=== PATIENT | female | born 1970 | race Caucasian/White ===

== ENCOUNTER → 2016-10-07 | Outpatient (REF) | payer BC ==
[2016-10-07 17:57] LABS: MEAN CORPUSCULAR HEMOGLOBIN 27.1 pg (27.0-33.0); MEAN CORPUSCULAR VOLUME 84.7 fl (80.0-96.0); RED CELL DISTRIBUTION WIDTH 14.8 % (11.5-14.5); WHITE BLOOD COUNT 8.6 K/mm3 (4.0-10.0)
[2016-10-07 18:58] LABS: ALBUMIN/GLOBULIN RATIO 1.38 (1.00-1.93); ALKALINE PHOSPHATASE 68 U/L (45-117); ALT/SGPT 22 U/L (12-78); ANION GAP 5 MEQ/L (8-16); AST/SGOT 14 U/L (15-37); BILIRUBIN,DIRECT < 0.1 MG/DL (0.0-0.2); BILIRUBIN,TOTAL 0.4 MG/DL (0.2-1.0); BLOOD UREA NITROGEN 13 MG/DL (7-18); CARBON DIOXIDE LEVEL 28 MEQ/L (21-32); CHLORIDE LEVEL 108 MEQ/L (98-107); CREATININE FOR GFR 0.61 MG/DL (0.55-1.02); GLOMERULAR FILTRATION RATE > 60.0 (>58); GLUCOSE, FASTING 83 MG/DL (70-105); POTASSIUM SERUM 4.7 MEQ/L (3.5-5.1); SODIUM LEVEL 141 MEQ/L (136-145); TOTAL PROTEIN 6.9 GM/DL (6.4-8.2)
== END ==
LOC: M SFHCPLAZ 15:19
PROVIDERS: ATTEND Dermatology
DX: L40.0 Psoriasis vulgaris (principal)

== ENCOUNTER → 2017-02-19 | Outpatient (REF) | payer BC ==
[2017-02-20 11:58] LABS: BASO # 0.1 10^3/uL (0.0-0.2); BASO % 0.7 % (0.0-1.0); EOS # 0.4 10^3/uL (0.0-0.50); EOS % 4.2 % (0.0-3.0); IMMATURE GRANULOCYTE % 0.5 % (0-0); LYMPH # 2.7 10^3/uL (1.5-4.5); LYMPH % 31.7 % (24.0-44.0); MEAN CORPUSCULAR HEMOGLOBIN 26.2 pg (27.0-33.0); MEAN CORPUSCULAR VOLUME 81.8 fl (80.0-96.0); MONO # 0.7 10^3/uL (0.0-0.8); MONO % 7.6 % (0.0-5.0); NEUTROPHILS # 4.8 10^3/uL (1.8-7.7); NEUTROPHILS % 55.3 % (36.0-66.0); PLATELET COUNT, AUTOMATED 369 10^3/uL (150-450); RED CELL DISTRIBUTION WIDTH 15.3 % (11.5-14.5); WHITE BLOOD COUNT 8.6 10^3/uL (4.0-10.0)
[2017-02-20 12:33] LABS: ALBUMIN/GLOBULIN RATIO 1.29 (1.00-1.93); ALKALINE PHOSPHATASE 77 U/L (45-117); ALT/SGPT 21 U/L (12-78); ANION GAP 5 MEQ/L (8-16); AST/SGOT 19 U/L (7-37); BILIRUBIN,TOTAL 0.3 MG/DL (0.2-1.0); BLOOD UREA NITROGEN 12 MG/DL (7-18); CALCIUM LEVEL 9.3 MG/DL (8.5-10.1); CARBON DIOXIDE LEVEL 30 MEQ/L (21-32); CHLORIDE LEVEL 106 MEQ/L (98-107); CREATININE FOR GFR 0.64 MG/DL (0.55-1.02); GLOMERULAR FILTRATION RATE > 60.0 (>58); GLUCOSE, FASTING 79 MG/DL (70-105); POTASSIUM SERUM 4.4 MEQ/L (3.5-5.1); SODIUM LEVEL 141 MEQ/L (136-145); TOTAL PROTEIN 7.1 GM/DL (6.4-8.2)
== END ==
LOC: M SFHCLERA 16:50
PROVIDERS: ATTEND Dermatology
DX: L40.0 Psoriasis vulgaris (principal)

== ENCOUNTER → 2017-03-10 | Outpatient (REF) | payer BC ==
[2017-03-10 21:24] LABS: ANION GAP 6 MEQ/L (8-16); BLOOD UREA NITROGEN 14 MG/DL (7-18); CALCIUM LEVEL 9.5 MG/DL (8.5-10.1); CARBON DIOXIDE LEVEL 29 MEQ/L (21-32); CHLORIDE LEVEL 104 MEQ/L (98-107); CREATININE FOR GFR 0.66 MG/DL (0.55-1.02); GLOMERULAR FILTRATION RATE > 60.0 (>58); GLUCOSE, FASTING 84 MG/DL (70-105); POTASSIUM SERUM 5.1 MEQ/L (3.5-5.1); SODIUM LEVEL 139 MEQ/L (136-145)
== END ==
LOC: M SFHCLERA 19:03
PROVIDERS: ATTEND Dermatology
DX: L40.9 Psoriasis, unspecified (principal)

== ENCOUNTER 2017-04-09 12:54 | Emergency (ER) | payer BC ==
[2017-04-09] MEDS: NS 1,000 ML IV (14:00)
[2017-04-09 14:32] LABS: BASO % 0.1 % (0.0-1.0); EOS % 0.3 % (0.0-3.0); IMMATURE GRANULOCYTE % 0.4 % (0-0); LYMPH # 0.8 10^3/uL (1.5-4.5); LYMPH % 7.7 % (24.0-44.0); MEAN CORPUSCULAR HGB CONC 32.9 g/dl (32.0-36.5); MEAN CORPUSCULAR VOLUME 78.8 fl (80.0-96.0); MONO % 9.6 % (0.0-5.0); NEUTROPHILS # 8.1 10^3/uL (1.8-7.7); NEUTROPHILS % 81.9 % (36.0-66.0); PLATELET COUNT, AUTOMATED 259 10^3/uL (150-450); RED CELL DISTRIBUTION WIDTH 14.9 % (11.5-14.5); WHITE BLOOD COUNT 9.9 10^3/uL (4.0-10.0)
[2017-04-09] MEDS: ONDANSETRON 4MG/2ML VIAL (J2405) IV (14:34)
[2017-04-09] MEDS: KETOROLAC 30 MG/ML VIAL (J1885) IV (14:34)
[2017-04-09] MEDS: MORPHINE 2 MG/ML 1ML SYRINGE IV (14:41)
[2017-04-09 14:42] LABS: INR 1.23
[2017-04-09 14:54] LABS: ALBUMIN 3.7 GM/DL (3.2-5.2); ALBUMIN/GLOBULIN RATIO 1.03 (1.00-1.93); ALKALINE PHOSPHATASE 85 U/L (45-117); ALT/SGPT 12 U/L (12-78); ANION GAP 6 MEQ/L (8-16); AST/SGOT 14 U/L (7-37); BILIRUBIN,DIRECT 0.2 MG/DL (0.0-0.2); BILIRUBIN,TOTAL 0.5 MG/DL (0.2-1.0); BLOOD UREA NITROGEN 17 MG/DL (7-18); CALCIUM LEVEL 8.7 MG/DL (8.5-10.1); CARBON DIOXIDE LEVEL 29 MEQ/L (21-32); CHLORIDE LEVEL 104 MEQ/L (98-107); GLOMERULAR FILTRATION RATE > 60.0 (>58); GLUCOSE, FASTING 91 MG/DL (70-105); POTASSIUM SERUM 3.8 MEQ/L (3.5-5.1); SODIUM LEVEL 139 MEQ/L (136-145); TOTAL PROTEIN 7.3 GM/DL (6.4-8.2)
[2017-04-09 15:28] LABS: KETONE, URINE AUTO RFX 2+ mg/dL (NEGATIVE); MUCUS, URINE RFX LARGE (NEGATIVE); RBC, URINE AUTO RFX 7 /HPF (0-3); SPECIFIC GRAVITY UR AUTO RFX 1.018 (1.002-1.035); SQUAM EPITHELIAL CELL UR AURFX 0 /HPF (0-6)
[2017-04-09 15:29] LABS: LEUKOCYTE ESTERASE UR AUTO RFX 3+ (NEGATIVE); NITRITE, URINE AUTO RFX POSITIVE (NEGATIVE); WBC, URINE AUTO RFX TNTC /HPF (0-3)
[2017-04-09] MEDS: CIPROFLOXACIN 400 MG in APPROPRIATE DILUENT 1 EA IV (16:28)
== END 2017-04-09 17:45 | disposition home or self-care (01) ==
LOC: M ED 12:54
DX: N10 Acute pyelonephritis (principal); F17.200 Nicotine dependence, unspecified, uncomplicated
CPT/HCPCS: J2405

== ENCOUNTER → 2017-06-16 | Outpatient (REF) | payer BC ==
[2017-06-16 21:21] LABS: BASO # 0.1 10^3/uL (0.0-0.2); BASO % 0.6 % (0.0-1.0); EOS # 0.4 10^3/uL (0.0-0.50); EOS % 4.7 % (0.0-3.0); HEMATOCRIT 42.6 % (36.0-47.0); HEMOGLOBIN 13.6 g/dl (12.0-16.0); IMMATURE GRANULOCYTE % 0.3 % (0-3.0); LYMPH # 2.9 10^3/uL (1.5-4.5); LYMPH % 36.2 % (24.0-44.0); MEAN CORPUSCULAR HGB CONC 31.9 g/dl (32.0-36.5); MEAN CORPUSCULAR VOLUME 81.5 fl (80.0-96.0); MONO # 0.6 10^3/uL (0.0-0.8); MONO % 7.6 % (0.0-5.0); NEUTROPHILS % 50.6 % (36.0-66.0); PLATELET COUNT, AUTOMATED 313 10^3/uL (150-450); RED BLOOD COUNT 5.23 10^6/uL (4.00-5.40); RED CELL DISTRIBUTION WIDTH 15.6 % (11.5-14.5); WHITE BLOOD COUNT 7.9 10^3/uL (4.0-10.0)
[2017-06-16 21:51] LABS: ALBUMIN 4.3 GM/DL (3.2-5.2); ALBUMIN/GLOBULIN RATIO 1.43 (1.00-1.93); ALKALINE PHOSPHATASE 78 U/L (45-117); ALT/SGPT 19 U/L (12-78); ANION GAP 5 MEQ/L (8-16); AST/SGOT 15 U/L (7-37); BILIRUBIN,TOTAL 0.3 MG/DL (0.2-1.0); BLOOD UREA NITROGEN 13 MG/DL (7-18); CALCIUM LEVEL 8.9 MG/DL (8.5-10.1); CARBON DIOXIDE LEVEL 29 MEQ/L (21-32); CHLORIDE LEVEL 108 MEQ/L (98-107); CREATININE FOR GFR 0.67 MG/DL (0.55-1.30); GLOMERULAR FILTRATION RATE > 60.0 (>58); GLUCOSE, FASTING 83 MG/DL (70-100); POTASSIUM SERUM 4.3 MEQ/L (3.5-5.1); SODIUM LEVEL 142 MEQ/L (136-145); TOTAL PROTEIN 7.3 GM/DL (6.4-8.2)
[2017-06-18 11:02] LABS: HEPATITIS B SURFACE ANTIGEN NEGATIVE (NEGATIVE)
[2017-06-18 11:26] LABS: HEPATITIS B CORE ANTIBODY IGM NEGATIVE (NEGATIVE)
[2017-06-18 11:28] LABS: HEPATITIS A ANTIBODY IGM NEGATIVE (NEGATIVE)
[2017-06-18 11:29] LABS: HIV 1&2 SCREEN CENTAUR NEGATIVE (NEGATIVE)
[2017-06-18 13:12] LABS: HEPATITIS C VIRUS ABY INDEX 0.1 INDEX (<0.8)
[2017-06-19 00:10] LABS: QUANTIFERON GOLD TB Positive (Negative); TB Test (QFT) Antigen 1.03 IU/mL (.); TB Test (QFT) Antigen Minus Ni 0.97 IU/mL (.); TB Test (QFT) Mitogen 6.71 IU/mL (.); TB Test (QFT) Nil 0.06 IU/mL (.)
== END ==
LOC: M SFHCLERA 16:47
DX: L40.0 Psoriasis vulgaris (principal)
CPT/HCPCS: 80053

== ENCOUNTER → 2017-10-27 | Outpatient (REF) | payer BC ==
[2017-10-27 19:50] LABS: BASO # 0.1 10^3/uL (0.0-0.2); BASO % 0.7 % (0.0-1.0); EOS # 0.4 10^3/uL (0.0-0.50); EOS % 4.4 % (0.0-3.0); HEMATOCRIT 40.6 % (36.0-47.0); HEMOGLOBIN 13.1 g/dl (12.0-15.5); IMMATURE GRANULOCYTE % 0.2 % (0-3.0); LYMPH # 3.9 10^3/uL (1.5-4.5); LYMPH % 43.2 % (24.0-44.0); MEAN CORPUSCULAR HEMOGLOBIN 26.5 pg (27.0-33.0); MEAN CORPUSCULAR HGB CONC 32.3 g/dl (32.0-36.5); MONO # 0.7 10^3/uL (0.0-0.8); MONO % 8.2 % (0.0-5.0); NEUTROPHILS # 3.9 10^3/uL (1.8-7.7); NEUTROPHILS % 43.3 % (36.0-66.0); PLATELET COUNT, AUTOMATED 297 10^3/uL (150-450); RED BLOOD COUNT 4.95 10^6/uL (4.00-5.40); RED CELL DISTRIBUTION WIDTH 15.7 % (11.5-14.5); WHITE BLOOD COUNT 8.9 10^3/uL (4.0-10.0)
[2017-10-27 19:59] LABS: ALBUMIN/GLOBULIN RATIO 1.29 (1.00-1.93); ALKALINE PHOSPHATASE 76 U/L (45-117); ALT/SGPT 21 U/L (12-78); ANION GAP 5 MEQ/L (8-16); AST/SGOT 15 U/L (7-37); BILIRUBIN,TOTAL 0.4 MG/DL (0.2-1.0); BLOOD UREA NITROGEN 15 MG/DL (7-18); CALCIUM LEVEL 9.5 MG/DL (8.5-10.1); CARBON DIOXIDE LEVEL 29 MEQ/L (21-32); CHLORIDE LEVEL 110 MEQ/L (98-107); CREATININE FOR GFR 0.67 MG/DL (0.55-1.30); GLOMERULAR FILTRATION RATE > 60.0 (>58); GLUCOSE, FASTING 86 MG/DL (70-100); SODIUM LEVEL 144 MEQ/L (136-145); TOTAL PROTEIN 7.1 GM/DL (6.4-8.2)
[2017-10-27 20:01] LABS: POTASSIUM SERUM 5.2 MEQ/L (3.5-5.1)
== END ==
LOC: M SFHCLERA 16:52
DX: L40.0 Psoriasis vulgaris (principal)

== ENCOUNTER → 2017-11-13 | Outpatient (REF) | payer BC ==
[2017-11-13 21:41] LABS: APPEARANCE, URINE HAZY (CLEAR); BACTERIA, URINE AUTO NEGATIVE (NEGATIVE); BILIRUBIN, URINE AUTO 1+ (NEGATIVE); BLOOD, URINE BLOOD NEGATIVE (NEGATIVE); COLOR, URINE YELLOW (YELLOW); GLUCOSE, URINE (UA) AUTO NEGATIVE (NEGATIVE); KETONE, URINE AUTO TRACE mg/dL (NEGATIVE); LEUKOCYTE ESTERASE, URINE AUTO NEGATIVE (NEGATIVE); MUCUS, URINE MODERATE (NEGATIVE); NITRITE, URINE AUTO NEGATIVE (NEGATIVE); PROTEIN, URINE AUTO 1+ mg/dL (NEGATIVE); RBC, URINE AUTO 9 /HPF (0-3); SPECIFIC GRAVITY URINE AUTO 1.029 (1.002-1.035); SQUAMOUS EPITHELIAL CELL UR AU 2 /HPF (0-6); WBC, URINE AUTO 2 /HPF (0-3)
== END ==
LOC: M LAB REF 21:10
DX: N39.0 Urinary tract infection, site not specified (principal)
CPT/HCPCS: 81001

== ENCOUNTER → 2020-01-26 | Outpatient (CLI) | payer BC ==
[~2020-01-26] MED LIST: CIPR-249 PO; CYCL1CAP5 PO; HYDR-3715 PO
== END ==
LOC: M LAB 10:52
PROVIDERS: ATTEND Dermatology
DX: Z79.899 Other long term (current) drug therapy (principal)

== ENCOUNTER → 2020-02-17 | Outpatient (CLI) | payer BC ==
--- NOTE | 2020-02-17 14:15 | REPPI ---
INDICATION: R76.12 POSITIVE QUANTIFERON-TB GOLD TEST COMPARISON: None. TECHNIQUE: PA/Lateral FINDINGS: Lungs: Clear, no infiltrate. Heart: Normal in size. Mediastinum: Mediastinal silhouette unremarkable. There is mild calcification of the thoracic aorta. Pleural angles: Unremarkable.. Bones and soft tissues: Unremarkable. IMPRESSION: No acute pulmonary disease. <Electronically signed by Peter Vital > 02/17/20 [id number]
== END ==
LOC: M PLAIMG 13:52
PROVIDERS: ATTEND Internal Medicine Infectious Disease
DX: R76.12 Nonspecific reaction to cell mediated immunity measurement of gamma interferon antigen response without active tuberculosis (principal)

== ENCOUNTER → 2020-02-17 | Outpatient (REF) | payer BC ==
[2020-02-17 15:57] LABS: BASO # 0.1 10^3/uL (0.0-0.2); BASO % 0.7 % (0.0-1.0); EOS # 0.6 10^3/uL (0.0-0.5); EOS % 6.6 % (0.0-3.0); HEMATOCRIT 41.9 % (36.0-47.0); HEMOGLOBIN 13.3 g/dl (12.0-15.5); LYMPH # 3.3 10^3/uL (1.5-5.0); LYMPH % 40.1 % (24.0-44.0); MEAN CORPUSCULAR HEMOGLOBIN 26.2 pg (27.0-33.0); MEAN CORPUSCULAR HGB CONC 31.7 g/dl (32.0-36.5); MEAN CORPUSCULAR VOLUME 82.6 fl (80.0-96.0); MONO # 0.6 10^3/uL (0.0-0.8); NEUTROPHILS # 3.8 10^3/uL (1.5-8.5); NEUTROPHILS % 45.4 % (36.0-66.0); PLATELET COUNT, AUTOMATED 320 10^3/uL (150-450); RED BLOOD COUNT 5.07 10^6/uL (4.00-5.40); WHITE BLOOD COUNT 8.3 10^3/uL (4.0-10.0)
[2020-02-17 16:26] LABS: ALBUMIN 4.1 GM/DL (3.2-5.2); ALT/SGPT 19 U/L (12-78); BILIRUBIN,TOTAL 0.4 MG/DL (0.2-1.0); BLOOD UREA NITROGEN 15 MG/DL (7-18); CALCIUM LEVEL 9.7 MG/DL (8.5-10.1); CARBON DIOXIDE LEVEL 27 MEQ/L (21-32); CHLORIDE LEVEL 107 MEQ/L (98-107); CREATININE FOR GFR 0.68 MG/DL (0.55-1.30); GLOMERULAR FILTRATION RATE > 60.0 (>58); GLUCOSE, FASTING 86 MG/DL (70-100); POTASSIUM SERUM 4.7 MEQ/L (3.5-5.1); SODIUM LEVEL 139 MEQ/L (136-145); TOTAL PROTEIN 7.4 GM/DL (6.4-8.2)
== END ==
LOC: M SFHCPLAZ 13:52
PROVIDERS: ATTEND Internal Medicine Infectious Disease
DX: R76.12 Nonspecific reaction to cell mediated immunity measurement of gamma interferon antigen response without active tuberculosis (principal)

== ENCOUNTER → 2020-03-16 | Outpatient (REF) | payer BC ==
[2020-03-16 17:56] LABS: BASO # 0.1 10^3/uL (0.0-0.2); BASO % 0.9 % (0.0-1.0); EOS # 0.6 10^3/uL (0.0-0.5); EOS % 9.5 % (0.0-3.0); HEMATOCRIT 42.4 % (36.0-47.0); HEMOGLOBIN 13.1 g/dl (12.0-15.5); LYMPH # 2.2 10^3/uL (1.5-5.0); LYMPH % 34.2 % (24.0-44.0); MEAN CORPUSCULAR HEMOGLOBIN 25.7 pg (27.0-33.0); MEAN CORPUSCULAR HGB CONC 30.9 g/dl (32.0-36.5); MEAN CORPUSCULAR VOLUME 83.1 fl (80.0-96.0); MONO # 0.6 10^3/uL (0.0-0.8); MONO % 9.1 % (0.0-5.0); NEUTROPHILS % 45.8 % (36.0-66.0); PLATELET COUNT, AUTOMATED 296 10^3/uL (150-450); WHITE BLOOD COUNT 6.5 10^3/uL (4.0-10.0)
[2020-03-16 19:27] LABS: ALBUMIN 3.9 GM/DL (3.2-5.2); ALT/SGPT 34 U/L (12-78); BILIRUBIN,DIRECT < 0.1 MG/DL (0.0-0.2); BILIRUBIN,TOTAL 0.2 MG/DL (0.2-1.0)
== END ==
LOC: M SFHCPLAZ 14:29
PROVIDERS: ATTEND Internal Medicine Infectious Disease
DX: R76.12 Nonspecific reaction to cell mediated immunity measurement of gamma interferon antigen response without active tuberculosis (principal)

== ENCOUNTER → 2020-04-23 | Outpatient (CLI) | payer SELFPAY | LOC: M LABSMTC 11:11 | PROVIDERS: ATTEND Pediatrics | DX: Z20.822 Contact with and (suspected) exposure to COVID-19 (principal) ==

== ENCOUNTER → 2022-09-27 | Outpatient (CLI) | payer BC | LOC: M WUC 12:54 | PROVIDERS: ATTEND Nurse Practitioner Family | DX: M50.323 Other cervical disc degeneration at C6-C7 level (principal) ==

== ENCOUNTER → 2022-11-06 | Outpatient (CLI) | payer OTHER ==
[2022-11-06 11:31] LABS: HEMATOCRIT 36.4 % (36.0-47.0); HEMOGLOBIN 11.1 g/dl (12.0-15.5); MEAN CORPUSCULAR HEMOGLOBIN 24.1 pg (27.0-33.0); MEAN CORPUSCULAR HGB CONC 30.5 g/dl (32.0-36.5); PLATELET COUNT, AUTOMATED 492 10^3/uL (150-450); RED BLOOD COUNT 4.61 10^6/uL (4.00-5.40); WHITE BLOOD COUNT 7.7 10^3/uL (4.0-10.0)
[2022-11-06 11:54] LABS: HEMOGLOBIN A1c 5.7 % (4.0-6.0)
[2022-11-06 12:04] LABS: ALBUMIN 3.4 G/DL (3.2-5.2); ALKALINE PHOSPHATASE 127 U/L (46-116); ALT/SGPT 19 U/L (7.0-40); AST/SGOT 17 U/L (<34); BILIRUBIN,TOTAL 0.2 MG/DL (0.3-1.2); BLOOD UREA NITROGEN 10 MG/DL (9-23); CALCIUM LEVEL 9.2 MG/DL (8.5-10.1); CARBON DIOXIDE LEVEL 25 MMOL/L (20-31); CHLORIDE LEVEL 107 MMOL/L (98-107); CHOLESTEROL LEVEL 195 MG/DL (<200); CHOLESTEROL RISK RATIO 4.97 (<5); CREATININE FOR GFR 0.51 MG/DL (0.55-1.30); GLOMERULAR FILTRATION RATE > 60.0 (>51); GLUCOSE, FASTING 79 MG/DL (60-100); HDL CHOLESTEROL 39.2 MG/DL (>40); LDL CHOLESTEROL 126.2 MG/DL (<100); NON-HDL-C 155.8 MG/DL; POTASSIUM SERUM 4.7 MMOL/L (3.5-5.1); SODIUM LEVEL 140 MMOL/L (136-145); TOTAL PROTEIN 7.1 G/DL (5.7-8.2); TRIGLYCERIDES LEVEL 148 MG/DL (<150)
[2022-11-06 12:06] LABS: TOTAL 25(OH) VITAMIN D 32.8 NG/ML (20.0-100.0)
[2022-11-06 12:07] LABS: THYROID STIMULATING HORMONE 2.564 uIU/ML (0.55-4.78)
== END ==
LOC: M RAD 10:27
PROVIDERS: ATTEND Family Medicine
DX: I10 Essential (primary) hypertension (principal); J44.9 Chronic obstructive pulmonary disease, unspecified

== ENCOUNTER 2023-01-20 14:35 | Emergency (ER) | payer OTHER ==
[~2023-01-20] VITALS: Ht 157.5 cm; Wt 51.7 kg
[2023-01-20 14:36] VITALS: TEMP 98
[2023-01-20 16:28] LABS: RSV AMPLIFICATION NEGATIVE (NEGATIVE)
[2023-01-20] MEDS ORDERED: methylPREDNISolone 125MG 2ML VIAL IV ONE (17:25)
[2023-01-20] MEDS ORDERED: NS 1,000 ML IV ONE (17:25)
[2023-01-20] MEDS ORDERED: IPRATROPIUM 0.5MG/ALBUTEROL 2.5MG INH SOL UD 3ML (DUONEB) NEB ONE (17:25)
[2023-01-20 17:50] LABS: VENOUS BASE EXCESS -3.1 (-2.0-2.0); VENOUS HCO3 22.7 MMOL/L (23.0-27.0); VENOUS O2 SATURATION 46.1 % (60.0-80.0); VENOUS PARTIAL PRESSURE CO2 43.8 mmHg (38.0-50.0); VENOUS PARTIAL PRESSURE O2 28.9 mmHg (30.0-50.0); VENOUS PH 7.333 UNITS (7.330-7.430); VENOUS TOTAL CO2 24.1 MMOL/L (24.0-28.0)
[2023-01-20 18:05] LABS: BASO % 0.4 % (0.0-1.0); EOS # 0.1 10^3/uL (0.0-0.5); EOS % 1.8 % (0.0-3.0); HEMATOCRIT 31.1 % (36.0-47.0); HEMOGLOBIN 9.4 g/dl (12.0-15.5); LYMPH % 13.8 % (24.0-44.0); MEAN CORPUSCULAR HEMOGLOBIN 23.2 pg (27.0-33.0); MEAN CORPUSCULAR HGB CONC 30.2 g/dl (32.0-36.5); MEAN CORPUSCULAR VOLUME 76.6 fl (80.0-96.0); MONO # 0.5 10^3/uL (0.0-0.8); MONO % 7.2 % (2.0-8.0); NEUTROPHILS # 5.4 10^3/uL (1.5-8.5); NEUTROPHILS % 76.4 % (36.0-66.0); PLATELET COUNT, AUTOMATED 465 10^3/uL (150-450); RED BLOOD COUNT 4.06 10^6/uL (4.00-5.40); WHITE BLOOD COUNT 7.1 10^3/uL (4.0-10.0)
[2023-01-20 18:21] LABS: ALBUMIN 3.3 G/DL (3.2-5.2); ALKALINE PHOSPHATASE 95 U/L (46-116); ALT/SGPT 13 U/L (7.0-40); AST/SGOT 22 U/L (<34); BILIRUBIN,DIRECT < 0.1 MG/DL (<0.4); BILIRUBIN,TOTAL 0.3 MG/DL (0.3-1.2); BLOOD UREA NITROGEN 16 MG/DL (9-23); CALCIUM LEVEL 9.8 MG/DL (8.5-10.1); CARBON DIOXIDE LEVEL 26 MMOL/L (20-31); CHLORIDE LEVEL 104 MMOL/L (98-107); CK-MB VALUE MASS < 1.0 NG/ML (<3.6); CREATININE FOR GFR 0.45 MG/DL (0.55-1.30); GLOMERULAR FILTRATION RATE > 60.0 (>51); GLUCOSE, FASTING 80 MG/DL (60-100); POTASSIUM SERUM 4.4 MMOL/L (3.5-5.1); SODIUM LEVEL 137 MMOL/L (136-145); TOTAL PROTEIN 7.1 G/DL (5.7-8.2)
[2023-01-20 18:22] LABS: THYROID STIMULATING HORMONE 2.142 uIU/ML (0.55-4.78); THYROXINE (T4) 12.9 UG/DL (4.5-10.9)
[2023-01-20 18:23] LABS: CPK CREATINE PHOSPHOKINASE 31 U/L (34-145); MB/CK RELATIVE INDEX 3.22 (< OR =4)
[2023-01-20] MEDS ORDERED: ISOVUE-370 76% 100ML VIAL As Ordered ONE (18:33)
[2023-01-20 20:04] VITALS: BP 140/65; O2SAT 98
== END 2023-01-20 20:07 | disposition home or self-care (01) ==
LOC: M ED 14:35
DX: R91.8 Other nonspecific abnormal finding of lung field (principal); D63.8 Anemia in other chronic diseases classified elsewhere; I10 Essential (primary) hypertension; E78.5 Hyperlipidemia, unspecified; J44.9 Chronic obstructive pulmonary disease, unspecified; F17.200 Nicotine dependence, unspecified, uncomplicated; Z79.2 Long term (current) use of antibiotics; Z79.899 Other long term (current) drug therapy
CPT/HCPCS: 71046; 71275; 80048; 80076; 82550; 82553; 82803; 83605; 83880; 84436; 84443; 85025; 87040; 87631; 93005; 94640; 96361; 96374; 99284; J2930; Q9967

== ENCOUNTER 2023-01-25 22:32 | Observation (INO) | payer OTHER ==
[~2023-01-25] VITALS: Ht 157.5 cm; Wt 49.5 kg
[2023-01-25] MEDS ORDERED: PRED10PA PO (22:41)
[2023-01-25] MEDS ORDERED: FEOS200T2 PO (22:41)
[2023-01-25] MEDS ORDERED: LISI5TAB11 PO (22:41)
[2023-01-25] MEDS ORDERED: SIMV20TA22 PO (22:41)
[2023-01-25 23:34] LABS: BASO % 0.2 % (0.0-1.0); EOS % 0.3 % (0.0-3.0); HEMATOCRIT 33.7 % (36.0-47.0); HEMOGLOBIN 10.4 g/dl (12.0-15.5); LYMPH # 1.3 10^3/uL (1.5-5.0); LYMPH % 10.7 % (24.0-44.0); MEAN CORPUSCULAR HEMOGLOBIN 23.2 pg (27.0-33.0); MEAN CORPUSCULAR HGB CONC 30.9 g/dl (32.0-36.5); MEAN CORPUSCULAR VOLUME 75.2 fl (80.0-96.0); MONO # 1.1 10^3/uL (0.0-0.8); NEUTROPHILS # 9.3 10^3/uL (1.5-8.5); NEUTROPHILS % 79.4 % (36.0-66.0); PLATELET COUNT, AUTOMATED 498 10^3/uL (150-450); RED BLOOD COUNT 4.48 10^6/uL (4.00-5.40); WHITE BLOOD COUNT 11.7 10^3/uL (4.0-10.0)
[2023-01-25 23:55] LABS: LIPASE 25 U/L (12-53)
[2023-01-25 23:57] LABS: ALBUMIN 3.4 G/DL (3.2-5.2); ALKALINE PHOSPHATASE 93 U/L (46-116); ALT/SGPT < 9 U/L (7.0-40); AST/SGOT 20 U/L (<34); BILIRUBIN,DIRECT < 0.1 MG/DL (<0.4); BILIRUBIN,TOTAL 0.3 MG/DL (0.3-1.2); BLOOD UREA NITROGEN 22 MG/DL (9-23); CALCIUM LEVEL 10.4 MG/DL (8.5-10.1); CARBON DIOXIDE LEVEL 28 MMOL/L (20-31); CHLORIDE LEVEL 97 MMOL/L (98-107); CREATININE FOR GFR 0.72 MG/DL (0.55-1.30); GLOMERULAR FILTRATION RATE > 60.0 (>51); GLUCOSE, FASTING 118 MG/DL (60-100); POTASSIUM SERUM 4.8 MMOL/L (3.5-5.1); SODIUM LEVEL 132 MMOL/L (136-145); TOTAL PROTEIN 7.3 G/DL (5.7-8.2)
[2023-01-26] MEDS ORDERED: METHYLNALTREXONE BROMIDE 12MG/0.6ML VIAL (RELISTOR) SC ONE (02:55)
[2023-01-26] MEDS ORDERED: FLEET ENEMA PR ONE (02:55)
[2023-01-26] MEDS ORDERED: NS 1,000 ML IV ONE (04:30)
[2023-01-26] MEDS ORDERED: ISOVUE-370 76% 100ML VIAL As Ordered ONE (04:40)
[2023-01-26] MEDS ORDERED: ONDANSETRON 4MG 2ML VIAL IV ONE (05:25)
[2023-01-26] MEDS: MORPHINE 4 MG/ML 1ML VIAL IV PRN ×2 (05:29→06:08)
[2023-01-26] MEDS ORDERED: LACTULOSE 20GM/30ML SYRUP UDC PO ONE ×2 (06:05→09:00)
[2023-01-26] MEDS ORDERED: MED REC IN PROGRESS XX SCH (08:40)
[2023-01-26] MEDS ORDERED: BISACODYL 10MG SUPP PR PRN (08:50)
[2023-01-26] MEDS ORDERED: FLEET ENEMA PR PRN (08:50)
[2023-01-26] MEDS ORDERED: SENNA 8.6 MG TAB (SENOKOT) PO PRN (08:50)
[2023-01-26] MEDS ORDERED: MED REC CURRENTLY UNOBTAINABLE XX SCH (09:30)
[2023-01-26] MEDS: NORCO, ANEXSIA 5/325MG TABLET (HYDROcodone/ACETAMINOPHEN) PO PRN ×2 (09:33→20:50)
[2023-01-26] MEDS: MIRALAX *UNIT DOSE* 17GM PACKET PO SCH (09:33)
[2023-01-26] MEDS: ENOXAPARIN 40MG/0.4ML SYRINGE (J1650 PER 10MG) SC SCH (09:33)
[2023-01-26] MEDS: lisinopriL 5 MG TAB PO SCH (13:08)
[2023-01-26 14:00] VITALS: BP 123/78; TEMP 97.7; O2SAT 95
[2023-01-26] MEDS: predniSONE 10MG TAB PO SCH (14:37)
[2023-01-26] MEDS ORDERED: PRED10PA2 PO (18:54)
[2023-01-26] MEDS ORDERED: CIPR-249 PO (18:54)
[2023-01-26] MEDS ORDERED: ALBU8.5H PO (18:59)
[2023-01-26] MEDS ORDERED: ONDA-83 PO (18:59)
[2023-01-26] MEDS ORDERED: HUMI40IN2 INJ (18:59)
[2023-01-26] MEDS ORDERED: HYDR-3713 PO (18:59)
[2023-01-26] MEDS ORDERED: HOME MED LIST COMPLETE! XX SCH (19:00)
[2023-01-26] MEDS: SIMVASTATIN 20 MG TAB PO SCH (20:44)
[2023-01-26 22:00] VITALS: BP 121/79; TEMP 97.7; O2SAT 99
[2023-01-27] MEDS: NORCO, ANEXSIA 5/325MG TABLET (HYDROcodone/ACETAMINOPHEN) PO PRN ×2 (03:42→09:53)
[2023-01-27] MEDS ORDERED: MAGNESIUM CITRATE 300ML BTL PO ONE (03:50)
[2023-01-27 06:00] VITALS: BP 139/92; TEMP 98.1; O2SAT 99
[2023-01-27 06:13] LABS: HEMATOCRIT 36.2 % (36.0-47.0); HEMOGLOBIN 11.1 g/dl (12.0-15.5); MEAN CORPUSCULAR HGB CONC 30.7 g/dl (32.0-36.5); MEAN CORPUSCULAR VOLUME 75.1 fl (80.0-96.0); PLATELET COUNT, AUTOMATED 498 10^3/uL (150-450); RED BLOOD COUNT 4.82 10^6/uL (4.00-5.40)
[2023-01-27 06:39] LABS: BLOOD UREA NITROGEN 11 MG/DL (9-23); CALCIUM LEVEL 11.1 MG/DL (8.5-10.1); CARBON DIOXIDE LEVEL 24 MMOL/L (20-31); CHLORIDE LEVEL 98 MMOL/L (98-107); GLOMERULAR FILTRATION RATE > 60.0 (>51); GLUCOSE, FASTING 93 MG/DL (60-100); POTASSIUM SERUM 5.2 MMOL/L (3.5-5.1); SODIUM LEVEL 131 MMOL/L (136-145)
[2023-01-27] MEDS: FERROUS SULFATE 325MG TAB PO SCH (08:45)
[2023-01-27] MEDS: lisinopriL 5 MG TAB PO SCH (08:45)
[2023-01-27] MEDS: ENOXAPARIN 40MG/0.4ML SYRINGE (J1650 PER 10MG) SC SCH (08:46)
[2023-01-27] MEDS: predniSONE 10MG TAB PO SCH (08:46)
[2023-01-27] MEDS: MIRALAX *UNIT DOSE* 17GM PACKET PO SCH (08:46)
[2023-01-27] MEDS ORDERED: LACTULOSE 20GM/30ML SYRUP UDC PO ONE (10:45)
[2023-01-27 14:00] VITALS: BP 131/78; TEMP 97.7; O2SAT 99
[2023-01-27] MEDS: KETOROLAC 30 MG/ML 1ML VIAL IV PRN (16:27)
[2023-01-27] MEDS ORDERED: LACTULOSE 20GM/30ML SYRUP UDC PO PRN (18:40)
[2023-01-27 19:45] VITALS: TEMP 98.6; O2SAT 97
[2023-01-27 20:03] VITALS: BP 109/73; TEMP 98.1; O2SAT 98
[2023-01-27] MEDS: SIMVASTATIN 20 MG TAB PO SCH (20:43)
[2023-01-28] MEDS: KETOROLAC 30 MG/ML 1ML VIAL IV PRN ×2 (00:13→06:31)
[2023-01-28 05:24] VITALS: BP 112/72; TEMP 97.7; O2SAT 96
[2023-01-28] MEDS ORDERED: SENN-186 PO (08:36)
[2023-01-28] MEDS ORDERED: LACT20EL PO (08:36)
[2023-01-28] MEDS ORDERED: PIRO10CA2 PO (08:36)
[2023-01-28] MEDS ORDERED: FLEEENE12 PR (08:36)
[2023-01-28 09:00] VITALS: BP 112/68
[2023-01-28] MEDS: lisinopriL 5 MG TAB PO SCH (09:00)
[2023-01-28] MEDS: MIRALAX *UNIT DOSE* 17GM PACKET PO SCH (09:00)
[2023-01-28] MEDS: ENOXAPARIN 40MG/0.4ML SYRINGE (J1650 PER 10MG) SC SCH (09:00)
[2023-01-28] MEDS: predniSONE 10MG TAB PO SCH (09:49)
[2023-01-28] MEDS: FERROUS SULFATE 325MG TAB PO SCH (09:49)
== END 2023-01-28 10:10 | disposition home or self-care (01) ==
LOC: M ED 22:32 → M ED INP 22:33 → UNDOADMOB 01-26 08:44 → M ED INP 01-26 08:44 → ENRESERV 01-26 13:09 → M MS5PR 01-26 14:05 → M ED INP 01-26 14:05 → UNDODISOB 01-28 10:10
PROVIDERS: ADMIT Internal Medicine; ATTEND Internal Medicine
DX: K59.03 Drug induced constipation (principal); T40.2X5A Adverse effect of other opioids, initial encounter; C79.70 Secondary malignant neoplasm of unspecified adrenal gland; G89.29 Other chronic pain; I10 Essential (primary) hypertension; E78.5 Hyperlipidemia, unspecified; D50.9 Iron deficiency anemia, unspecified; E87.1 Hypo-osmolality and hyponatremia; D72.828 Other elevated white blood cell count; D75.839 Thrombocytosis, unspecified; E83.52 Hypercalcemia; R10.9 Unspecified abdominal pain; M54.9 Dorsalgia, unspecified; Z87.891 Personal history of nicotine dependence; Z80.1 Family history of malignant neoplasm of trachea, bronchus and lung; Z79.899 Other long term (current) drug therapy
CPT/HCPCS: 36415; 74018; 74177; 80048; 80076; 83690; 85025; 85027; 87635; 96372; 96374; 96375; 96376; 99285; J1650; J1885; J2212; J2405; J7512; Q9967

== ENCOUNTER 2023-02-15 15:37 | Emergency (ER) | payer BC, OTHER ==
[~2023-02-15] VITALS: Ht 157.5 cm; Wt 48.2 kg
[~2023-02-15 15:37] MED LIST changes: +ALBU8.5H PO; +FEOS200T2 PO; +FLEEENE12 PR; +HUMI40IN2 INJ; +HYDR-3713 PO; +LACT20EL PO; +LISI5TAB11 PO; +ONDA-83 PO; +PIRO10CA2 PO; +PRED10PA PO; +PRED10PA2 PO; +SENN-186 PO; +SIMV20TA22 PO
[2023-02-15] MEDS ORDERED: NS IV ONE (16:00)
[2023-02-15] MEDS ORDERED: ACETAMINOPHEN TAB 650MG DOSE (2X325MG) PO ONE (16:00)
[2023-02-15] MEDS ORDERED: NS 1,000 ML IV ONE ×2 (16:00→17:50)
[2023-02-15] MEDS ORDERED: PIPERACILLIN/TAZOBACTAM SOD 4.5 GM in D5W MINI-BAG PLUS 50 ML IV ONE (16:00)
[2023-02-15] MEDS ORDERED: NALO4SPR (17:12)
[2023-02-15] MEDS ORDERED: FENT1PAT25 (17:12)
[2023-02-15] MEDS ORDERED: CVS1CAP2 PO (17:12)
[2023-02-15 17:39] LABS: BASO % 0.1 % (0.0-1.0); EOS % 0.4 % (0.0-3.0); HEMATOCRIT 28.3 % (36.0-47.0); HEMOGLOBIN 9.2 g/dl (12.0-15.5); LYMPH # 0.2 10^3/uL (1.5-5.0); MEAN CORPUSCULAR HEMOGLOBIN 22.8 pg (27.0-33.0); MEAN CORPUSCULAR HGB CONC 32.5 g/dl (32.0-36.5); MEAN CORPUSCULAR VOLUME 70.2 fl (80.0-96.0); MONO # 0.3 10^3/uL (0.0-0.8); MONO % 3.9 % (2.0-8.0); NEUTROPHILS # 7.3 10^3/uL (1.5-8.5); NEUTROPHILS % 92.6 % (36.0-66.0); PLATELET COUNT, AUTOMATED 419 10^3/uL (150-450); RED BLOOD COUNT 4.03 10^6/uL (4.00-5.40); WHITE BLOOD COUNT 7.9 10^3/uL (4.0-10.0)
[2023-02-15] MEDS ORDERED: ISOVUE-370 76% 100ML VIAL As Ordered ONE (17:44)
[2023-02-15 17:48] LABS: CK-MB VALUE MASS < 1.0 NG/ML (<3.6)
[2023-02-15 17:50] LABS: CPK CREATINE PHOSPHOKINASE 26 U/L (34-145); MB/CK RELATIVE INDEX 3.84 (< OR =4)
[2023-02-15] MEDS ORDERED: IBUPROFEN 600MG TAB PO ONE (17:50)
[2023-02-15 17:51] LABS: ALBUMIN 2.6 G/DL (3.2-5.2); ALKALINE PHOSPHATASE 160 U/L (46-116); ALT/SGPT < 9 U/L (7.0-40); AST/SGOT 23 U/L (<34); BILIRUBIN,DIRECT 0.2 MG/DL (<0.4); BILIRUBIN,TOTAL 0.5 MG/DL (0.3-1.2); BLOOD UREA NITROGEN 29 MG/DL (9-23); CALCIUM LEVEL 9.4 MG/DL (8.5-10.1); CARBON DIOXIDE LEVEL 25 MMOL/L (20-31); CHLORIDE LEVEL 90 MMOL/L (98-107); GLOMERULAR FILTRATION RATE > 60.0 (>51); GLUCOSE, FASTING 81 MG/DL (60-100); POTASSIUM SERUM 4.8 MMOL/L (3.5-5.1); SODIUM LEVEL 123 MMOL/L (136-145); TOTAL PROTEIN 6.3 G/DL (5.7-8.2)
[2023-02-15 17:52] LABS: THYROXINE (T4) 9.2 UG/DL (4.5-10.9)
[2023-02-15 17:53] LABS: THYROID STIMULATING HORMONE 3.536 uIU/ML (0.55-4.78)
[2023-02-15 17:57] LABS: CK-MB VALUE MASS < 1.0 NG/ML (<3.6)
[2023-02-15 17:58] LABS: CPK CREATINE PHOSPHOKINASE 21 U/L (34-145); MB/CK RELATIVE INDEX 4.76 (< OR =4)
[2023-02-15] MEDS ORDERED: fentaNYL 100 MCG/2 ML INJECTION IV ONE (18:20)
[2023-02-15] MEDS ORDERED: LIDOCAINE 2% 5ML JELLY UROJET TOP ONE (18:25)
[2023-02-15] MEDS ORDERED: NOREPINEPHRINE 4MG IN D5 250ML 4 MG in IV 1 EA IV SCH ×2 (18:25)
[2023-02-15 18:48] LABS: PROCALCITONIN 0.31 ng/ml
[2023-02-15 21:50] VITALS: BP 102/52; TEMP 98.8; O2SAT 100
== END 2023-02-15 21:56 | disposition short-term general hospital (02) ==
LOC: M ED 15:37 → EDBD 15:37 → M ED 21:56
DX: J18.9 Pneumonia, unspecified organism (principal); A41.9 Sepsis, unspecified organism; R10.9 Unspecified abdominal pain; R00.0 Tachycardia, unspecified; I10 Essential (primary) hypertension; C34.90 Malignant neoplasm of unspecified part of unspecified bronchus or lung; F17.200 Nicotine dependence, unspecified, uncomplicated; Z92.3 Personal history of irradiation; Z79.52 Long term (current) use of systemic steroids; Z79.83 Long term (current) use of bisphosphonates; Z79.899 Other long term (current) drug therapy
CPT/HCPCS: 36415; 51702; 71045; 71275; 74177; 80047; 80048; 80076; 81001; 82550; 82553; 83605; 83880; 84145; 84436; 84443; 85025; 86140; 87040; 87486; 87581; 87633; 87798; 93005; 93041; 94760; 96365; 96366; 96375; 99291; 99292; J2543; J3010; Q9967

== ENCOUNTER 2023-03-15 08:41 | Inpatient (IN) | payer OTHER ==
[~2023-03-15] VITALS: Ht 157.5 cm; Wt 45.0 kg
[~2023-03-15 08:41] MED LIST changes: +CVS1CAP2 PO; +FENT1PAT25 TOP; +NALO4SPR
[2023-03-15] MEDS ORDERED: NS 500 ML IV ONE (09:25)
[2023-03-15] MEDS ORDERED: ONDANSETRON 4MG 2ML VIAL IV ONE (09:25)
[2023-03-15] MEDS ORDERED: fentaNYL 100 MCG/2 ML INJECTION IV ONE ×2 (09:25→11:45)
[2023-03-15 10:02] LABS: LIPASE 38 U/L (12-53)
[2023-03-15 10:03] LABS: ALBUMIN 2.6 G/DL (3.2-5.2); ALKALINE PHOSPHATASE 76 U/L (46-116); ALT/SGPT 22 U/L (7.0-40); AMYLASE 56 U/L (30-118); AST/SGOT 22 U/L (<34); BILIRUBIN,DIRECT 0.2 MG/DL (<0.4); BILIRUBIN,TOTAL 0.4 MG/DL (0.3-1.2); BLOOD UREA NITROGEN 13 MG/DL (9-23); CALCIUM LEVEL 8.6 MG/DL (8.5-10.1); CARBON DIOXIDE LEVEL 28 MMOL/L (20-31); CHLORIDE LEVEL 100 MMOL/L (98-107); GLOMERULAR FILTRATION RATE > 60.0 (>51); GLUCOSE, FASTING 97 MG/DL (60-100); MAGNESIUM LEVEL 1.7 MG/DL (1.8-2.4); SODIUM LEVEL 136 MMOL/L (136-145); TOTAL PROTEIN 6.2 G/DL (5.7-8.2)
[2023-03-15] MEDS ORDERED: ISOVUE-370 76% 100ML VIAL As Ordered ONE (10:30)
[2023-03-15 10:31] LABS: RSV AMPLIFICATION NEGATIVE (NEGATIVE)
[2023-03-15 11:40] LABS: BASO % 0.2 % (0.0-1.0); HEMATOCRIT 29.9 % (36.0-47.0); HEMOGLOBIN 9.3 g/dl (12.0-15.5); LYMPH # 0.2 10^3/uL (1.5-5.0); LYMPH % 3.8 % (24.0-44.0); MEAN CORPUSCULAR HEMOGLOBIN 24.2 pg (27.0-33.0); MEAN CORPUSCULAR HGB CONC 31.1 g/dl (32.0-36.5); MEAN CORPUSCULAR VOLUME 77.9 fl (80.0-96.0); MONO # 0.5 10^3/uL (0.0-0.8); MONO % 11.1 % (2.0-8.0); NEUTROPHILS % 83.6 % (36.0-66.0); RED BLOOD COUNT 3.84 10^6/uL (4.00-5.40); WHITE BLOOD COUNT 4.8 10^3/uL (4.0-10.0)
[2023-03-15] MEDS ORDERED: LIDOCAINE 2% 5ML JELLY UROJET TOP ONE (11:50)
[2023-03-15 12:06] LABS: PLATELET COUNT, AUTOMATED 76 10^3/uL (150-450)
[2023-03-15] MEDS ORDERED: NS 1,000 ML IV ONE ×3 (12:35→14:50)
[2023-03-15 12:42] LABS: INR 1.22; PARTIAL THROMBOPLASTIN TIME 35.1 SECONDS (24.8-34.2); PROTHROMBIN TIME 15.1 SECONDS (12.5-14.5)
[2023-03-15] MEDS ORDERED: FLEET ENEMA PR PRN (13:45)
[2023-03-15] MEDS ORDERED: KETOROLAC 30 MG/ML 1ML VIAL IV PRN (13:45)
[2023-03-15] MEDS ORDERED: MED REC IN PROGRESS XX SCH (13:45)
[2023-03-15] MEDS ORDERED: HYDROMORPHONE HCL 0.5 MG/ 0.5 ML SYRINGE IV PRN (13:45)
[2023-03-15] MEDS ORDERED: ONDA-84 PO (14:03)
[2023-03-15] MEDS ORDERED: FOLI1TAB11 PO (14:03)
[2023-03-15] MEDS ORDERED: PROC10TA5 PO (14:03)
[2023-03-15] MEDS ORDERED: OXYC1TAB23 PO (14:03)
[2023-03-15] MEDS ORDERED: FLEEENE12 PR (14:03)
[2023-03-15] MEDS ORDERED: SENN-83 PO (14:03)
[2023-03-15] MEDS ORDERED: DEXA4TA (14:03)
[2023-03-15] MEDS ORDERED: HOME MED LIST COMPLETE! XX SCH (14:10)
[2023-03-15] MEDS ORDERED: ONDANSETRON 4MG 2ML VIAL IV PRN (14:10)
[2023-03-15] MEDS ORDERED: IPRATROPIUM 0.5MG/ALBUTEROL 2.5MG INH SOL UD 3ML (DUONEB) NEB PRN (14:30)
[2023-03-15] MEDS ORDERED: KETOROLAC 30 MG/ML 1ML VIAL IV ONE (14:50)
[2023-03-15] MEDS ORDERED: MAG SULF 1GM/100ML (MAG RUN) 1 GM in IV 1 EA IV ONE ×2 (15:00→15:05)
[2023-03-15] MEDS ORDERED: CALCIUM GLUCONATE 1,000 MG in D5W MINI-BAG PLUS 100 ML IV ONE (15:15)
[2023-03-15] MEDS: METOCLOPRAMIDE INJ 10MG/2ML VIAL IV SCH ×2 (15:18→20:34)
[2023-03-15] MEDS ORDERED: KCL 40MEQ IN D5/0.45NS 1000ML 1,000 ML IV SCH (16:00)
[2023-03-15] MEDS: MAG SULF 1GM/100ML (MAG RUN) 1 GM in IV 1 EA IV SCH ×2 (16:52→18:03)
[2023-03-15 16:54] VITALS: BP 107/58; TEMP 98.5; O2SAT 95
[2023-03-15 19:47] LABS: IONIZED CALCIUM 4.2 MG/DL (4.5-5.3)
[2023-03-15 20:10] LABS: MAGNESIUM LEVEL 2.4 MG/DL (1.8-2.4); POTASSIUM SERUM 3.5 MMOL/L (3.5-5.1)
[2023-03-15 20:11] LABS: CK-MB VALUE MASS < 1.0 NG/ML (<3.6)
[2023-03-15 20:12] LABS: CPK CREATINE PHOSPHOKINASE 22 U/L (34-145); MB/CK RELATIVE INDEX 4.54 (< OR =4)
[2023-03-15 20:13] VITALS: BP 91/56; TEMP 98.5; O2SAT 95
[2023-03-15 20:26] VITALS: BP 100/64
[2023-03-15] MEDS: LIDOCAINE 5% (LIDODERM) PATCH TD SCH (20:35)
[2023-03-15] MEDS: KCL 40MEQ IN D5/0.45NS 1000ML 1,000 ML IV SCH (20:35)
[2023-03-15 23:38] VITALS: BP 104/49; TEMP 97.8; O2SAT 91
[2023-03-16 04:09] VITALS: BP 102/55; TEMP 98.1; O2SAT 93
[2023-03-16] MEDS: METOCLOPRAMIDE INJ 10MG/2ML VIAL IV SCH ×4 (04:17→21:05)
[2023-03-16 06:30] LABS: HEMATOCRIT 25.2 % (36.0-47.0); LYMPH # 0.2 10^3/uL (1.5-5.0); LYMPH % 6.5 % (24.0-44.0); MEAN CORPUSCULAR HEMOGLOBIN 24.5 pg (27.0-33.0); MEAN CORPUSCULAR HGB CONC 31.7 g/dl (32.0-36.5); MEAN CORPUSCULAR VOLUME 77.1 fl (80.0-96.0); MONO # 0.6 10^3/uL (0.0-0.8); MONO % 16.6 % (2.0-8.0); NEUTROPHILS # 2.6 10^3/uL (1.5-8.5); NEUTROPHILS % 75.7 % (36.0-66.0); RED BLOOD COUNT 3.27 10^6/uL (4.00-5.40); WHITE BLOOD COUNT 3.4 10^3/uL (4.0-10.0)
[2023-03-16 06:51] LABS: BLOOD UREA NITROGEN 14 MG/DL (9-23); CALCIUM LEVEL 7.5 MG/DL (8.5-10.1); CARBON DIOXIDE LEVEL 29 MMOL/L (20-31); CHLORIDE LEVEL 102 MMOL/L (98-107); CREATININE FOR GFR 0.35 MG/DL (0.55-1.30); GLOMERULAR FILTRATION RATE > 60.0 (>51); GLUCOSE, FASTING 103 MG/DL (60-100); POTASSIUM SERUM 4.1 MMOL/L (3.5-5.1); SODIUM LEVEL 136 MMOL/L (136-145)
[2023-03-16 07:20] LABS: PLATELET COUNT, AUTOMATED 51 10^3/uL (150-450)
[2023-03-16] MEDS ORDERED: CALCIUM GLUCONATE 1,000 MG in D5W MINI-BAG PLUS 100 ML IV ONE ×2 (07:25→12:30)
[2023-03-16] MEDS: KCL 40MEQ IN D5/0.45NS 1000ML 1,000 ML IV SCH (07:44)
[2023-03-16 08:00] VITALS: BP 83/58; TEMP 99.3; O2SAT 100
[2023-03-16] MEDS ORDERED: MAG SULF 1GM/100ML (MAG RUN) 1 GM in IV 1 EA IV SCH (09:00)
[2023-03-16] MEDS ORDERED: ENOXAPARIN 40MG/0.4ML SYRINGE (J1650 PER 10MG) SC SCH (09:00)
[2023-03-16] MEDS ORDERED: NS 1,000 ML IV ONE ×3 (09:35→17:00)
[2023-03-16 12:32] LABS: MAGNESIUM LEVEL 1.8 MG/DL (1.8-2.4); POTASSIUM SERUM 4.2 MMOL/L (3.5-5.1)
[2023-03-16] MEDS: NS 1,000 ML IV SCH ×3 (13:03→16:37)
[2023-03-16 15:58] VITALS: BP_SYST 89; BP_DIAS 53; BP_DIAS 59; TEMP 101.1; O2SAT 100
[2023-03-16] MEDS ORDERED: VANCOMYCIN HCL 1,000 MG, VIAL MATE ADAPTER 1 EACH in D5W 250 ML IV SCH (16:15)
[2023-03-16] MEDS ORDERED: MAG SULF 1GM/100ML (MAG RUN) 1 GM in IV 1 EA IV ONE (16:15)
[2023-03-16 17:12] LABS: C REACTIVE PROTEIN QUANTITATIV 16.3 MG/DL (<1.0)
[2023-03-16 17:20] LABS: PROCALCITONIN 0.24 ng/ml
[2023-03-16] MEDS ORDERED: VANCOMYCIN HCL 750 MG, VIAL MATE ADAPTER 1 EACH in D5W 250 ML IV ONE ×6 (18:00)
[2023-03-16] MEDS ORDERED: VANCOMYCIN HCL 500 MG in D5W MINI-BAG PLUS 100 ML IV ONE ×4 (18:00)
[2023-03-16 20:00] VITALS: TEMP 99.5; O2SAT 96
[2023-03-16] MEDS ORDERED: PIPERACILLIN/TAZOBACTAM SOD 4.5 GM in D5W MINI-BAG PLUS 50 ML IV SCH (20:00)
[2023-03-16 20:54] VITALS: BP 99/52
[2023-03-16] MEDS ORDERED: ALBUTEROL SULFATE 2.5MG/0.5ML INH NEB SOLN NEB ONE (21:00)
[2023-03-16] MEDS: LIDOCAINE 5% (LIDODERM) PATCH TD SCH (21:00)
[2023-03-16] MEDS ORDERED: PANTOPRAZOLE 40MG VIAL IV SCH (21:00)
[2023-03-16] MEDS: PIPERACILLIN/TAZOBACTAM SOD 4.5 GM in D5W MINI-BAG PLUS 50 ML IV SCH (21:04)
[2023-03-16 23:48] VITALS: BP 90/50; TEMP 100.6; O2SAT 93
[2023-03-17] MEDS ORDERED: VANCOMYCIN HCL 750 MG, VIAL MATE ADAPTER 1 EACH in D5W 250 ML IV SCH ×3
[2023-03-17] MEDS: PIPERACILLIN/TAZOBACTAM SOD 4.5 GM in D5W MINI-BAG PLUS 50 ML IV SCH (01:53)
[2023-03-17] MEDS: METOCLOPRAMIDE INJ 10MG/2ML VIAL IV SCH (03:00)
[2023-03-17] MEDS ORDERED: LORazepam 2 MG/ML 1ML VIAL IV PRN (03:15)
[2023-03-17] MEDS ORDERED: SCOPOLAMINE 1MG TRANSDERMAL PATCH TOP PRN (03:15)
[2023-03-17] MEDS ORDERED: MORPHINE 2 MG/ML 1ML VIAL IV PRN (03:15)
== END 2023-03-17 04:39 | disposition expired | DRG 247 ==
LOC: EDBD 08:41 → M ED 08:41 → M ED INP 13:39 → ENRESERV 14:17 → M PCU 16:29
PROVIDERS: ADMIT General Practice; ATTEND General Practice
DX: K56.609 Unspecified intestinal obstruction, unspecified as to partial versus complete obstruction (principal); R65.21 Severe sepsis with septic shock; J15.69 Pneumonia due to other Gram-negative bacteria; A41.9 Sepsis, unspecified organism; J90 Pleural effusion, not elsewhere classified; J96.11 Chronic respiratory failure with hypoxia; E46 Unspecified protein-calorie malnutrition; C78.5 Secondary malignant neoplasm of large intestine and rectum; C78.6 Secondary malignant neoplasm of retroperitoneum and peritoneum; C79.51 Secondary malignant neoplasm of bone; D69.6 Thrombocytopenia, unspecified; C79.70 Secondary malignant neoplasm of unspecified adrenal gland; I48.0 Paroxysmal atrial fibrillation; I87.1 Compression of vein; J43.9 Emphysema, unspecified; E83.42 Hypomagnesemia; E83.51 Hypocalcemia; C34.91 Malignant neoplasm of unspecified part of right bronchus or lung; D50.9 Iron deficiency anemia, unspecified; I10 Essential (primary) hypertension; J98.11 Atelectasis; Z51.5 Encounter for palliative care; Z66 Do not resuscitate; N39.0 Urinary tract infection, site not specified; Z92.21 Personal history of antineoplastic chemotherapy; Z79.899 Other long term (current) drug therapy; E78.5 Hyperlipidemia, unspecified; F17.200 Nicotine dependence, unspecified, uncomplicated; L40.8 Other psoriasis; Z92.3 Personal history of irradiation